=== PATIENT | male | born 1965 | race Two or more races ===

== ENCOUNTER 2023-07-14 20:04 | Inpatient (IN) | payer OTHER ==
[~2023-07-14] VITALS: Ht 172.7 cm; Wt 87.1 kg
[2023-07-14] MEDS ORDERED: ONDANSETRON HCL 4 MG/2 ML VIAL IV ONE (20:45)
[2023-07-14] MEDS ORDERED: MORPHINE SULFATE 4 MG/ML SYR/VIAL IV ONE (20:45)
[2023-07-14] MEDS ORDERED: SODIUM CHLORIDE 0.9% 1,000 ML IV ONE (20:45)
[2023-07-14 21:40] LABS: Basophils # (auto) 0 10 ^3/uL (0-0.2); Basophils % (auto) 0.6 % (0.0-2.0); Eosinophils # (auto) 0.3 10 ^3/uL (0-0.8); Eosinophils % (auto) 3.1 % (0.0-7.0); Hematocrit 40.8 % (41.0-53.0); Lymphocytes # (auto) 2.8 10 ^3/uL (0.4-5.4); Lymphocytes % (auto) 33.6 % (10.0-50.0); Mean Corpuscular Hemoglobin 30.5 pg (28.0-32.0); Mean Corpuscular Hgb Conc. 34.3 g/dL (32.0-36.0); Mean Corpuscular Volume 89.1 fL (80.0-100.0); Monocytes # (auto) 0.6 10 ^3/uL (0-1.3); Monocytes % (auto) 7.4 % (0.0-12.0); Neutrophils # (auto) 4.6 10 ^3/uL (1.6-8.6); Neutrophils % (auto) 55.3 % (37.0-80.0); Nucleated Red Blood Cells % 0.1 %; Red Blood Cells 4.58 10^6/uL (4.5-5.90); Red Cell Distribution Width 13.5 % (11.8-14.3); White Blood Cell 8.4 10^3/uL (4.4-10.8)
[2023-07-14 21:57] LABS: INR 1.01 (0.9-1.15); Partial Thromboplastin Time 24.5 SEC (24.5-34.5); Prothrombin Time 10.6 sec (9.3-11.8)
[2023-07-14 22:05] LABS: Alanine Aminotransferase 19 U/L (7-40); Albumin 3.9 g/dL (3.2-4.8); Alkaline Phosphatase 101 U/L (46-116); Anion Gap 8 (5-15); Aspartate Aminotransferase 16 U/L (13-40); BUN/Creatinine Ratio 32.8 (10.0-20.0); Bilirubin, Total 0.6 mg/dL (0.2-1.0); Blood Urea Nitrogen 22 mg/dL (9-23); Calcium 8.3 mg/dL (8.7-10.4); Carbon Dioxide 24 mmol/L (20-30); Chloride 110 mmol/L (98-107); Glucose 118 mg/dL (74-106); Potassium 3.6 mmol/L (3.5-5.1); Sodium 142 mmol/L (136-145)
[2023-07-14 22:50] VITALS: PULSE 75; RESP 10; O2SAT 96
[2023-07-15] MEDS ORDERED: MORPHINE SULFATE 4 MG/ML SYR/VIAL IV ONE (01:15)
[2023-07-15] MEDS ORDERED: ACETAMINOPHEN 325 MG TAB PO PRN (01:30)
[2023-07-15] MEDS ORDERED: DOCUSATE SOD 100 MG CAP PO PRN (01:30)
[2023-07-15] MEDS ORDERED: ONDANSETRON HCL 4 MG/2 ML VIAL IV PRN (01:30)
[2023-07-15] MEDS: D5W/SOD CHL 0.45% 1,000 ML IV SCH ×2 (01:42→18:28)
[2023-07-15] MEDS ORDERED: NITROGLYCERIN 0.4 MG SL TAB SL PRN (02:15)
[2023-07-15] MEDS ORDERED: MORPHINE SULFATE INJ 2 MG/ml SYRG IV PRN (02:15)
[2023-07-15 06:23] LABS: Basophils # (auto) 0 10 ^3/uL (0-0.2); Basophils % (auto) 0.3 % (0.0-2.0); Eosinophils # (auto) 0.2 10 ^3/uL (0-0.8); Eosinophils % (auto) 1.1 % (0.0-7.0); Hematocrit 40.5 % (41.0-53.0); Hemoglobin 14.1 g/dL (13.5-17.5); Lymphocytes # (auto) 1.8 10 ^3/uL (0.4-5.4); Lymphocytes % (auto) 12.6 % (10.0-50.0); Mean Corpuscular Hemoglobin 30.9 pg (28.0-32.0); Mean Corpuscular Hgb Conc. 34.7 g/dL (32.0-36.0); Mean Corpuscular Volume 89.1 fL (80.0-100.0); Monocytes # (auto) 1.1 10 ^3/uL (0-1.3); Monocytes % (auto) 7.6 % (0.0-12.0); Neutrophils # (auto) 11.1 10 ^3/uL (1.6-8.6); Neutrophils % (auto) 78.4 % (37.0-80.0); Red Blood Cells 4.55 10^6/uL (4.5-5.90); Red Cell Distribution Width 13.6 % (11.8-14.3); White Blood Cell 14.2 10^3/uL (4.4-10.8)
[2023-07-15 06:40] LABS: Alanine Aminotransferase 16 U/L (7-40); Alkaline Phosphatase 90 U/L (46-116); Anion Gap 8 (5-15); BUN/Creatinine Ratio 19.6 (10.0-20.0); Blood Urea Nitrogen 11 mg/dL (9-23); Calcium 8.2 mg/dL (8.7-10.4); Carbon Dioxide 25 mmol/L (20-30); Chloride 108 mmol/L (98-107); Glucose 105 mg/dL (74-106); Potassium 3.4 mmol/L (3.5-5.1); Sodium 141 mmol/L (136-145)
[2023-07-15 06:42] LABS: Albumin 3.9 g/dL (3.2-4.8); Aspartate Aminotransferase 18 U/L (13-40); Total Protein 6.3 g/dL (5.7-8.2)
[2023-07-15 07:58] VITALS: PULSE 76; RESP 16; O2SAT 96
[2023-07-15] MEDS: MORPHINE SULFATE INJ 2 MG/ml SYRG IV PRN (08:46)
[2023-07-15] MEDS: ENOXAPARIN SOD 40 MG/0.4 ML SYRINGE SC SCH (10:29)
[2023-07-15 11:17] VITALS: RESP 18; O2SAT 94; O2SAT 95
[2023-07-15 12:50] VITALS: BP 128/92; PULSE 55; RESP 17; TEMP 98; O2SAT 94
[2023-07-15] MEDS: HYDROcodone-ACET 5/325MG TAB PO PRN (15:07)
[2023-07-15] MEDS ORDERED: POTASSIUM CHL 20 Meq TABLET PO ONE (15:45)
[2023-07-15 17:00] VITALS: BP 139/90; PULSE 80; RESP 17; TEMP 98.6; O2SAT 95
[2023-07-15 20:00] VITALS: BP 130/87; PULSE 81; PULSE 96; RESP 16; TEMP 97.5; O2SAT 95
[2023-07-15 22:00] VITALS: BP 130/87; PULSE 81; RESP 16; TEMP 97.5; O2SAT 98
[2023-07-16] VITALS (9 sets, daily range): BP systolic 110–159; BP diastolic 64–93; PULSE 71–97; RESP 14–18; TEMP 97.8–99.1; O2SAT 92–98
[2023-07-16] MEDS: MORPHINE SULFATE INJ 2 MG/ml SYRG IV PRN ×2 (02:05→08:43)
[2023-07-16] MEDS: D5W/SOD CHL 0.45% 1,000 ML IV SCH ×2 (04:10→17:52)
[2023-07-16 06:13] LABS: Basophils # (auto) 0 10 ^3/uL (0-0.2); Basophils % (auto) 0.2 % (0.0-2.0); Eosinophils # (auto) 0.2 10 ^3/uL (0-0.8); Eosinophils % (auto) 1.5 % (0.0-7.0); Hematocrit 40.9 % (41.0-53.0); Hemoglobin 14.2 g/dL (13.5-17.5); Lymphocytes # (auto) 2.1 10 ^3/uL (0.4-5.4); Lymphocytes % (auto) 17.1 % (10.0-50.0); Mean Corpuscular Hgb Conc. 34.6 g/dL (32.0-36.0); Mean Corpuscular Volume 89.7 fL (80.0-100.0); Monocytes # (auto) 1.1 10 ^3/uL (0-1.3); Monocytes % (auto) 8.8 % (0.0-12.0); Neutrophils # (auto) 8.7 10 ^3/uL (1.6-8.6); Neutrophils % (auto) 72.4 % (37.0-80.0); Nucleated Red Blood Cells % 0.1 %; Red Blood Cells 4.56 10^6/uL (4.5-5.90); Red Cell Distribution Width 13.4 % (11.8-14.3)
[2023-07-16 06:22] LABS: Alanine Aminotransferase 17 U/L (7-40); Alkaline Phosphatase 79 U/L (46-116); Anion Gap 7 (5-15); BUN/Creatinine Ratio 17.9 (10.0-20.0); Blood Urea Nitrogen 10 mg/dL (9-23); Calcium 8.2 mg/dL (8.5-10.1); Carbon Dioxide 26 mmol/L (20-30); Chloride 106 mmol/L (98-107); Glucose 112 mg/dL (74-106); Potassium 3.7 mmol/L (3.5-5.1); Sodium 139 mmol/L (136-145)
[2023-07-16 06:23] LABS: Albumin 3.7 g/dL (3.2-4.8); Aspartate Aminotransferase < 8 U/L (13-40); Bilirubin, Total 1.4 mg/dL (0.2-1.0); Total Protein 5.9 g/dL (5.7-8.2)
[2023-07-16] MEDS: ENOXAPARIN SOD 40 MG/0.4 ML SYRINGE SC SCH (08:43)
[2023-07-16] MEDS ORDERED: ceFAZolin 1GM/50ML 100 ML IV ONE (11:00)
[2023-07-16] MEDS ORDERED: TETRACAINE 1% INJ 2 ML VIAL IJ ONE (11:11)
[2023-07-16] MEDS ORDERED: BUPIVACAINE/DEXTROSE MPF 0.75% 2 ML AMP IT ONE (11:14)
[2023-07-16] MEDS ORDERED: PROPOFOL 10 MG/ML 20 ML IV ONE (11:14)
[2023-07-16] MEDS ORDERED: fentaNYL CITRATE 100 MCG/2 ML VL ONE (11:14)
[2023-07-16] MEDS ORDERED: MIDAZOLAM HCL 2MG/2ML 2ml VIAL (1mg/ml) ONE (11:14)
[2023-07-16] MEDS ORDERED: ONDANSETRON HCL 4 MG/2 ML VIAL ONE (11:14)
[2023-07-16] MEDS ORDERED: EPINEPHrine HCL 1 MG/1 ML AMP ONE (11:14)
[2023-07-16] MEDS ORDERED: HYDROmorphone HCL 2 MG/ML VL/or syr IV PRN ×2 (11:15)
[2023-07-16] MEDS ORDERED: MORPHINE SULFATE INJ 2 MG/ml SYRG IV PRN (11:15)
[2023-07-16] MEDS ORDERED: METOCLOPRAMIDE HCL 5MG/ml INJ 2ml VIAL IV PRN (11:15)
[2023-07-16] MEDS ORDERED: ACETAMINOPHEN 325 MG TAB PO PRN (12:45)
[2023-07-16] MEDS ORDERED: ceFAZolin 2 GM/D5W100ml 100 ML IV SCH (14:00)
[2023-07-16] MEDS: SODIUM CHLOR 0.9% PF (SALINE LOCK) 10ML VIAL/SYR IV SCH ×2 (14:00→22:00)
[2023-07-16] MEDS: D5W/LACTATED RINGERS 1,000 ML IV SCH ×2 (14:07→23:02)
[2023-07-16] MEDS: ceFAZolin 2 GM/D5W100ml 100 ML IV SCH (20:05)
[2023-07-16] MEDS: HYDROmorphone HCL 2 MG/ML VL/or syr IV PRN (20:11)
[2023-07-16] MEDS: hydrALAZINE HCL 20 MG/ML VL IV PRN (22:28)
[2023-07-17] VITALS (7 sets, daily range): BP systolic 127–146; BP diastolic 82–90; PULSE 77–88; RESP 18–20; TEMP 98.1–99.1; O2SAT 93–100
[2023-07-17] MEDS: HYDROcodone-ACET 10/325MG TAB PO PRN ×4 (03:16→18:26)
[2023-07-17] MEDS: ceFAZolin 2 GM/D5W100ml 100 ML IV SCH (03:57)
[2023-07-17] MEDS: D5W/SOD CHL 0.45% 1,000 ML IV SCH ×2 (05:59→20:15)
[2023-07-17] MEDS: SODIUM CHLOR 0.9% PF (SALINE LOCK) 10ML VIAL/SYR IV SCH ×3 (05:59→22:00)
[2023-07-17 07:10] LABS: Basophils # (auto) 0 10 ^3/uL (0-0.2); Eosinophils # (auto) 0 10 ^3/uL (0-0.8); Eosinophils % (auto) 0.1 % (0.0-7.0); Hematocrit 39.8 % (41.0-53.0); Hemoglobin 13.5 g/dL (13.5-17.5); Lymphocytes # (auto) 1.7 10 ^3/uL (0.4-5.4); Lymphocytes % (auto) 10.3 % (10.0-50.0); Mean Corpuscular Hemoglobin 30.6 pg (28.0-32.0); Mean Corpuscular Hgb Conc. 33.9 g/dL (32.0-36.0); Mean Corpuscular Volume 90.4 fL (80.0-100.0); Monocytes # (auto) 1.3 10 ^3/uL (0-1.3); Neutrophils # (auto) 13.7 10 ^3/uL (1.6-8.6); Neutrophils % (auto) 81.6 % (37.0-80.0); Red Cell Distribution Width 13.6 % (11.8-14.3); White Blood Cell 16.8 10^3/uL (4.4-10.8)
[2023-07-17 07:23] LABS: Alanine Aminotransferase 14 U/L (7-40); Albumin 3.8 g/dL (3.2-4.8); Alkaline Phosphatase 67 U/L (46-116); Anion Gap 7 (5-15); Aspartate Aminotransferase 10 U/L (13-40); BUN/Creatinine Ratio 16.4 (10.0-20.0); Bilirubin, Total 0.9 mg/dL (0.2-1.0); Blood Urea Nitrogen 10 mg/dL (9-23); Calcium 8.6 mg/dL (8.5-10.1); Carbon Dioxide 24 mmol/L (20-30); Chloride 108 mmol/L (98-107); Cholesterol 148 mg/dL (< 200); HDL Cholesterol 49 mg/dL (40-59); LDL Cholesterol 89 mg/dL (< 100); Potassium 3.9 mmol/L (3.5-5.1); Sodium 139 mmol/L (136-145); Total Protein 6.1 g/dL (5.7-8.2); Triglycerides 60 mg/dL (< 150)
[2023-07-17] MEDS: D5W/LACTATED RINGERS 1,000 ML IV SCH ×2 (08:07→17:58)
[2023-07-17] MEDS: ENOXAPARIN SOD 40 MG/0.4 ML SYRINGE SC SCH (08:27)
[2023-07-17 08:49] LABS: Glucose 123 mg/dL (74-106)
[2023-07-17] MEDS: MORPHINE SULFATE INJ 2 MG/ml SYRG IV PRN (20:23)
[2023-07-18] VITALS (7 sets, daily range): BP systolic 140–161; BP diastolic 64–98; PULSE 70–97; RESP 17–18; TEMP 97.4–98.7; O2SAT 95–100
[2023-07-18] MEDS: HYDROcodone-ACET 10/325MG TAB PO PRN ×2 (03:08→21:33)
[2023-07-18] MEDS: D5W/LACTATED RINGERS 1,000 ML IV SCH ×2 (04:45→15:28)
[2023-07-18] MEDS: SODIUM CHLOR 0.9% PF (SALINE LOCK) 10ML VIAL/SYR IV SCH ×3 (06:10→21:33)
[2023-07-18] MEDS: MORPHINE SULFATE INJ 2 MG/ml SYRG IV PRN ×2 (08:49→15:32)
[2023-07-18] MEDS: ENOXAPARIN SOD 40 MG/0.4 ML SYRINGE SC SCH (08:50)
[2023-07-18] MEDS: D5W/SOD CHL 0.45% 1,000 ML IV SCH ×2 (08:53→22:50)
[2023-07-18] MEDS: hydrALAZINE HCL 20 MG/ML VL IV PRN (17:35)
[2023-07-19] VITALS (7 sets, daily range): BP systolic 143–162; BP diastolic 81–96; PULSE 76–94; RESP 16–20; TEMP 98.2–99.6; O2SAT 94–98
[2023-07-19] MEDS: HYDROmorphone HCL 2 MG/ML VL/or syr IV PRN ×4 (01:24→14:28)
[2023-07-19] MEDS: D5W/LACTATED RINGERS 1,000 ML IV SCH ×3 (03:19→22:19)
[2023-07-19] MEDS: SODIUM CHLOR 0.9% PF (SALINE LOCK) 10ML VIAL/SYR IV SCH ×3 (06:04→22:20)
[2023-07-19] MEDS: ENOXAPARIN SOD 40 MG/0.4 ML SYRINGE SC SCH (09:29)
[2023-07-19] MEDS: HYDROcodone-ACET 10/325MG TAB PO PRN ×2 (09:30→16:15)
[2023-07-19] MEDS ORDERED: DOCU-265 PO ×2 (09:46)
[2023-07-19] MEDS ORDERED: HYDR-4798 PO ×2 (09:46)
[2023-07-19] MEDS: D5W/SOD CHL 0.45% 1,000 ML IV SCH (12:10)
[2023-07-19] MEDS ORDERED: DOCU-94 PO (15:00)
[2023-07-19] MEDS ORDERED: HYDR-4902 PO (15:00)
[2023-07-20] MEDS: D5W/SOD CHL 0.45% 1,000 ML IV SCH (01:30)
[2023-07-20] MEDS: MORPHINE SULFATE INJ 2 MG/ml SYRG IV PRN (02:21)
[2023-07-20 05:00] VITALS: BP 133/58; PULSE 90; RESP 18; TEMP 98.6; O2SAT 96
[2023-07-20] MEDS: SODIUM CHLOR 0.9% PF (SALINE LOCK) 10ML VIAL/SYR IV SCH (05:42)
[2023-07-20] MEDS: HYDROcodone-ACET 5/325MG TAB PO PRN (06:53)
[2023-07-20] MEDS: D5W/LACTATED RINGERS 1,000 ML IV SCH (06:54)
[2023-07-20 08:05] VITALS: BP 134/83; PULSE 85; RESP 18; TEMP 98.1; O2SAT 96
[2023-07-20 08:32] VITALS: BP 134/83; PULSE 85; RESP 18; TEMP 98.1; O2SAT 94
[2023-07-20 09:20] VITALS: BP 161/95; PULSE 85; RESP 18; TEMP 98.1; O2SAT 94
== END 2023-07-20 10:00 | disposition home or self-care (01) | DRG 313 ==
LOC: EDBD 20:04 → ER 20:04 → TELE 07-15 02:08 → TELE-WESTW 07-15 11:00
PROVIDERS: ADMIT Orthopaedic Surgery; ATTEND Internal Medicine
PROC: 0QSG35Z Reposition Right Tibia with External Fixation Device, Percutaneous Approach (ICD-10-PCS; principal; 2023-07-16 11:19)
DX: S82.141A Displaced bicondylar fracture of right tibia, initial encounter for closed fracture (principal); E87.6 Hypokalemia; F17.210 Nicotine dependence, cigarettes, uncomplicated; S82.831A Other fracture of upper and lower end of right fibula, initial encounter for closed fracture; V89.2XXA Person injured in unspecified motor-vehicle accident, traffic, initial encounter; Y93.89 Activity, other specified; Y92.89 Other specified places as the place of occurrence of the external cause; Y99.8 Other external cause status
CPT/HCPCS: 36415; 71045; 72170; 73120; 73562; 73590; 73700; 76000; 80053; 80061; 83735; 84484; 85025; 85610; 85730; 86850; 86900; 86901; 87081; 93005; 96361; 96374; 96375; 96376; 97110; 97116; 97163; 97530; G0378; J0171; J0690; J2250; J2405; J2704